=== PATIENT | female | born 1990 | race Caucasian/White ===

== ENCOUNTER 2016-04-17 09:57 | Inpatient (IN) | payer OTHER ==
[2016-04-17] VITALS (12 sets, daily range): BP systolic 114–138; RESP 13–25; TEMP 97.8–98.8; Ht 162.6 cm; Wt 116.6 kg
[~2016-04-17] VITALS: Ht 162.6 cm; Wt 116.6 kg
[2016-04-17] MEDS ORDERED: ACETAMINOPHEN 325 MG TAB PO PRN (10:55)
[2016-04-17] MEDS ORDERED: CEFAZOLIN 3,000 MG in SODIUM CHLORIDE 0.9% 100 ML IV ONE (13:20)
[2016-04-17] MEDS ORDERED: FAMOTIDINE 20 MG INJ IV ONE (13:20)
[2016-04-17] MEDS ORDERED: METOCLOPRAMIDE 10 MG/2 ML VIAL IV PUSH ONE (13:20)
[2016-04-17] MEDS ORDERED: LACT RINGERS 1,000 ML IV SCH ×2 (13:20→17:05)
[2016-04-17] MEDS ORDERED: SALINE FLUSH 10 ML FLUSH PRN (14:05)
[2016-04-17] MEDS ORDERED: DILAUDID 1 MG/ML AMP IV PRN (14:05)
[2016-04-17] MEDS ORDERED: DIPHENHYDRAMINE 50 MG/ML VIAL IV PRN (14:05)
[2016-04-17] MEDS ORDERED: MEPERIDINE 25 MG/ML IV PRN (14:05)
[2016-04-17] MEDS ORDERED: MORPHINE 4 MG/ML SYR IV PRN ×2 (14:05)
[2016-04-17] MEDS ORDERED: NALOXONE 0.4 MG/ML AMP IV PRN (14:05)
[2016-04-17] MEDS ORDERED: BUTORPHANOL 2 MG/ML VIAL IV PRN (14:05)
[2016-04-17] MEDS ORDERED: ONDANSETRON 4 MG VIAL IV PRN ×3 (14:05→17:05)
[2016-04-17] MEDS ORDERED: MORPHINE 2 MG/ML SYR IV PRN ×2 (14:05)
[2016-04-17] MEDS ORDERED: PROMETHAZINE 25 MG/ML VIAL IV PRN (14:05)
[2016-04-17] MEDS ORDERED: OXYCODONE 5 MG TAB PO PRN (14:05)
[2016-04-17] MEDS ORDERED: MEASLES,MUMPS,RUBELLA VAC SUBQ.VACC ONE (17:05)
[2016-04-17] MEDS ORDERED: TDaP 0.5 ML VIAL IM.VACC ONE (17:05)
[2016-04-17] MEDS: KETOROLAC 30 MG/ML VIAL IV SCH ×2 (18:25→23:14)
[2016-04-17] MEDS: MISOPROSTOL 100 MCG TAB PO SCH ×2 (18:25→23:14)
[2016-04-17] MEDS: SALINE FLUSH 10 ML FLUSH SCH (19:22)
[2016-04-17] MEDS: LABETALOL 100 MG TAB PO SCH (20:17)
[2016-04-17] MEDS: OXYTOCIN 15 UNITS/250 ML NS 250 ML IV SCH (23:15)
[2016-04-18] MEDS: OXYTOCIN 15 UNITS/250 ML NS 250 ML IV SCH (00:03)
[2016-04-18 02:00] VITALS: BP_SYST 115; RESP 18; TEMP 97.9
[2016-04-18 05:19] VITALS: BP_SYST 121; RESP 18; TEMP 98.4
[2016-04-18] MEDS: MISOPROSTOL 100 MCG TAB PO SCH ×2 (05:35→14:36)
[2016-04-18] MEDS: SODIUM CHLORIDE 0.9% FLUSH BAG 500 ML IV SCH (06:00)
[2016-04-18] MEDS: KETOROLAC 30 MG/ML VIAL IV SCH ×2 (06:29→11:22)
[2016-04-18] MEDS: SALINE FLUSH 10 ML FLUSH SCH ×2 (08:00→21:05)
[2016-04-18] MEDS: LABETALOL 100 MG TAB PO SCH ×2 (08:41→21:04)
[2016-04-18 09:16] VITALS: BP_SYST 120; TEMP 98.7
[2016-04-18 09:17] VITALS: RESP 24
[2016-04-18] MEDS: Ibuprofen 600 MG TAB PO SCH ×3 (12:00→23:00)
[2016-04-18 14:40] VITALS: BP_SYST 126; RESP 18; TEMP 97.8
[2016-04-18] MEDS: MAG HYDROX 30 ML UDC PO SCH ×2 (16:27→23:00)
[2016-04-18 17:14] VITALS: BP_SYST 133; RESP 18; TEMP 97.9
[2016-04-19] MEDS: SODIUM CHLORIDE 0.9% FLUSH BAG 500 ML IV SCH (06:00)
[2016-04-19] MEDS: Ibuprofen 600 MG TAB PO SCH (06:07)
[2016-04-19 06:21] VITALS: BP_SYST 110; RESP 18; TEMP 98.2
[2016-04-19] MEDS: SALINE FLUSH 10 ML FLUSH SCH (08:00)
[2016-04-19] MEDS: LABETALOL 100 MG TAB PO SCH (08:22)
[2016-04-19] MEDS: MAG HYDROX 30 ML UDC PO SCH (08:22)
[2016-04-19] MEDS ORDERED: TDaP 0.5 ML VIAL IM.VACC ONE (08:47)
[2016-04-19 08:51] VITALS: BP_SYST 110; RESP 18; TEMP 98.2
== END 2016-04-19 09:17 | disposition home or self-care (01) | DRG 766 ==
LOC: LDOP 09:57 → LD 13:35 → OB 18:15
PROVIDERS: ADMIT Obstetrics & Gynecology Reproductive Endocrinology; ATTEND Obstetrics & Gynecology Reproductive Endocrinology
PROC: 10D00Z1 Extraction of Products of Conception, Low, Open Approach (ICD-10-PCS; principal; 2016-04-17)
PROC: 0UT70ZZ Resection of Bilateral Fallopian Tubes, Open Approach (ICD-10-PCS; 2016-04-17)
DX: O76 Abnormality in fetal heart rate and rhythm complicating labor and delivery (principal); O99.214 Obesity complicating childbirth; O16.4 Unspecified maternal hypertension, complicating childbirth; O34.219 Maternal care for unspecified type scar from previous cesarean delivery; Z3A.38 38 weeks gestation of pregnancy; Z37.0 Single live birth
CPT/HCPCS: 59025; 80053; 82803; 85025; 86850; 86900; 86901; 88302; 96372